=== PATIENT | male | born 1960 | race Caucasian/White ===

== ENCOUNTER 2023-09-14 09:51 | Observation (INO) | payer MEDICAID ==
[~2023-09-14] VITALS: Ht 190.5 cm; Wt 106.8 kg
[2023-09-14 10:23] LABS: BASOPHILS # (AUTO) 0.1 X10'3 (0-0.2); BASOPHILS % (AUTO) 1.2 % (0-1); EOSINOPHILS # (AUTO) 0.5 X10'3 (0-0.9); EOSINOPHILS % (AUTO) 5.7 % (0-6); HEMATOCRIT 44.5 % (42.0-52.0); HEMOGLOBIN 14.8 g/dl (14.0-17.9); LYMPHOCYTES # (AUTO) 1.9 X10'3 (1.1-4.8); LYMPHOCYTES % (AUTO) 22.6 % (21-51); MEAN CORPUSCULAR HEMOGLOBIN 29.7 PG (27.0-31.0); MEAN CORPUSCULAR HGB CONC 33.3 g/dL (33.0-36.5); MEAN CORPUSCULAR VOLUME 89.2 FL (78-98); MEAN PLATELET VOLUME 9.1 FL (7.4-10.4); MONOCYTES # (AUTO) 0.5 X10'3 (0-0.9); MONOCYTES % (AUTO) 6.2 % (2-12); NEUTROPHILS # (AUTO) 5.5 X10'3 (1.8-7.7); NEUTROPHILS % (AUTO) 64.3 % (42-75); PLATELET COUNT 232 X10'3 (140-440); RED BLOOD COUNT 4.99 X10'6 (4.70-6.10); RED CELL DISTRIBUTION WIDTH 14.3 % (11.5-14.5); WHITE BLOOD COUNT 8.5 X10'3 (4.5-11.0)
[2023-09-14 10:58] LABS: ALBUMIN 3.5 G/DL (3.4-5.0); ANION GAP 5 (8-16); BLOOD UREA NITROGEN 13 MG/DL (7-18); BUN/CREATININE RATIO 17.3 (10.0-20.0); CALCIUM 9.1 MG/DL (8.5-10.1); CHLORIDE 104 MMOL/L (99-107); CREATININE 0.75 MG/DL (0.60-1.10); GLUCOSE 106 MG/DL (70-104); POTASSIUM 4.4 MMOL/L (3.5-5.1); PRO BRAIN NATRIURETIC PEPTIDE 37 PG/ML (0-125); SODIUM 141 MMOL/L (135-145); TOTAL CARBON DIOXIDE 32.5 MMOL/L (24-32); eCRCL 125 ML/MIN; eGFR > 90 ML/MIN
[2023-09-14] MEDS ORDERED: potassium Cl 20 mEq SR tablet PO PRN ×2 (15:50)
[2023-09-14] MEDS ORDERED: magnesium 4gm in 100ml NS 100 ML IV PRN (15:50)
[2023-09-14] MEDS ORDERED: mag hydrox/Alum hydrox/simeth 30ml oral suspension PO PRN (15:50)
[2023-09-14] MEDS ORDERED: magnesium 2GM in 50ml NS 50 ML IV PRN (15:50)
[2023-09-14] MEDS ORDERED: ondansetron/PF 4mg/2ml inj IV PRN (15:50)
[2023-09-14] MEDS ORDERED: potassium Cl 40MEQ/1/2NS 520ml 520 ML IV PRN (15:50)
[2023-09-14] MEDS ORDERED: magnesium hydroxide 30ml (MOM) UD suspension PO PRN (15:50)
[2023-09-14] MEDS: amLODIPine 5mg tablet PO ONE (16:32)
[2023-09-14] MEDS: K and/or MAG REPLACEMENT MC SCH (19:34)
[2023-09-14] MEDS: docusate sod 100mg capsule PO SCH (20:06)
[2023-09-14] MEDS: enoxaparin 40mg/0.4ml syringe SQ SCH (20:06)
[2023-09-14 22:40] VITALS: RESP 18; O2SAT 96
[2023-09-14 22:43] VITALS: BP 149/89; RESP 18; TEMP 98.1
[2023-09-14] MEDS: acetaminophen 325mg tablet PO PRN (22:50)
[2023-09-15] VITALS (7 sets, daily range): BP systolic 144–181; BP diastolic 74–101; PULSE 71–77; RESP 15–19; TEMP 97.1–97.8; O2SAT 94–98
[2023-09-15 06:30] LABS: BASOPHILS # (AUTO) 0.1 X10'3 (0-0.2); BASOPHILS % (AUTO) 0.6 % (0-1); EOSINOPHILS # (AUTO) 0.5 X10'3 (0-0.9); EOSINOPHILS % (AUTO) 5.3 % (0-6); HEMATOCRIT 43.8 % (42.0-52.0); HEMOGLOBIN 14.8 g/dl (14.0-17.9); LYMPHOCYTES # (AUTO) 2.2 X10'3 (1.1-4.8); LYMPHOCYTES % (AUTO) 23.9 % (21-51); MEAN CORPUSCULAR HEMOGLOBIN 30.2 PG (27.0-31.0); MEAN CORPUSCULAR HGB CONC 33.8 g/dL (33.0-36.5); MEAN CORPUSCULAR VOLUME 89.3 FL (78-98); MEAN PLATELET VOLUME 9.5 FL (7.4-10.4); MONOCYTES # (AUTO) 0.8 X10'3 (0-0.9); NEUTROPHILS # (AUTO) 5.6 X10'3 (1.8-7.7); NEUTROPHILS % (AUTO) 61.2 % (42-75); PLATELET COUNT 217 X10'3 (140-440); RED CELL DISTRIBUTION WIDTH 14.3 % (11.5-14.5); WHITE BLOOD COUNT 9.1 X10'3 (4.5-11.0)
[2023-09-15 07:54] LABS: ALANINE AMINOTRANSFERASE 34 U/L (12-78); ALBUMIN 3.4 G/DL (3.4-5.0); ALBUMIN/GLOBULIN RATIO 0.9 (1.1-1.5); ALKALINE PHOSPHATASE 64 IU/L (46-116); ANION GAP 10 (8-16); ASPARTATE AMINO TRANSFERASE 18 U/L (10-37); BILIRUBIN,TOTAL 0.3 MG/DL (0.1-1.0); BLOOD UREA NITROGEN 13 MG/DL (7-18); BUN/CREATININE RATIO 20.3 (10.0-20.0); CALCIUM 8.5 MG/DL (8.5-10.1); CHLORIDE 106 MMOL/L (99-107); CHOL/HDL RATIO 3.6 (0.00-4.99); CHOLESTEROL 166 MG/DL (0-200); CREATININE 0.64 MG/DL (0.60-1.10); GLUCOSE 104 MG/DL (70-104); HDL CHOLESTEROL 46 MG/DL (35-60); LDL CHOLESTEROL 99 MG/DL (50-100); POTASSIUM 4.1 MMOL/L (3.5-5.1); SODIUM 142 MMOL/L (135-145); TOTAL CARBON DIOXIDE 25.7 MMOL/L (24-32); TOTAL PROTEIN 7.1 G/DL (6.4-8.2); TRIGLYCERIDES 141 MG/DL (20-135); eCRCL 143 ML/MIN; eGFR > 90 ML/MIN
[2023-09-15] MEDS: amLODIPine 5mg tablet PO SCH (08:18)
[2023-09-15] MEDS: lisinopril 10 MG tablet PO STA (11:56)
[2023-09-15] MEDS: PERFLUTREN PROTEIN-A MICROSPHR (Optison) 0.22 MG/ML 3ML VIAL IV ONE (11:58)
[2023-09-15] MEDS ORDERED: LISI20TA28 PO (14:47)
[2023-09-15] MEDS ORDERED: AMLO-708 PO (14:47)
[2023-09-15] MEDS: pneumococcal 23-VAL P-sac vacc 25 mcg/0.5ml vial IMVAC ONE (16:10)
[2023-09-15] MEDS: FLU VACC QS2023-24(6MOS UP)/PF 60 MCG/0.5 ML SYRINGE IM ONE (16:13)
== END 2023-09-15 16:31 | disposition home or self-care (01) ==
LOC: ER 09:52 → ED HOLD 15:55 → PCU 3S 22:10
PROVIDERS: ADMIT Family Medicine; ATTEND Family Medicine
DX: I20.9 Angina pectoris, unspecified (principal); I10 Essential (primary) hypertension; Z87.09 Personal history of other diseases of the respiratory system; Z87.01 Personal history of pneumonia (recurrent); Z79.899 Other long term (current) drug therapy; Z23 Encounter for immunization
CPT/HCPCS: 36415; 71045; 80048; 80053; 80061; 83735; 83880; 84484; 85025; 87081; 90471; 90472; 90686; 90732; 93005; 93306; 96372; 99285; G0378; J1650

== ENCOUNTER 2023-11-06 21:55 | Emergency (ER) | payer MEDICAID ==
[~2023-11-06] VITALS: Ht 190.5 cm; Wt 109.5 kg
[~2023-11-06 21:55] MED LIST: AMLO-708 PO; LISI20TA28 PO
[2023-11-06 22:09] VITALS: BP 133/79; PULSE 78; RESP 16; TEMP 98.1; O2SAT 97
[2023-11-06] MEDS ORDERED: SULF1TAB49 PO (22:42)
== END 2023-11-06 23:24 | disposition home or self-care (01) ==
LOC: ER 21:56
DX: L03.011 Cellulitis of right finger (principal); Z79.899 Other long term (current) drug therapy
CPT/HCPCS: 10060; 99283; A4565; A6449